=== PATIENT | male | born 1960 | race Caucasian/White ===

== ENCOUNTER 2021-08-04 20:39 | Inpatient (IN) ==
[2021-08-04] MEDS ORDERED: Magnesium Sulfate 2 gm BAG 2 GM/50 ML BAG ONE (20:52)
[2021-08-04] MEDS ORDERED: Naloxone 4 mg VIAL 0.4 MG/ML 10 ml VIAL (4 mg) ONE (20:56)
[2021-08-04] MEDS ORDERED: Magnesium Sulfate 2 gm BAG 2 GM/50 ML BAG IVPB ONE (20:59)
[2021-08-04] MEDS ORDERED: NS 0.9% 1000 ml BAG 1,000 ML IV ONE ×2 (21:00→21:45)
[2021-08-04] MEDS ORDERED: Naloxone 0.4 mg VIAL 0.4 mg/ml 1 ml VIAL IV PUSH ONE (21:15)
[2021-08-04 21:36] LABS: ABS Eosinophils 0.3 10^3/ul (0-0.6); ABS Lymphocytes 2.1 10^3/ul (1.0-4.8); ABS Monocytes 0.8 10^3/ul (0-0.8); ABS Neutrophils 4.5 10^3/ul (1.5-7.7); Eosinophil % 4.3 %; Hematocrit 43 % (42-52); Hemoglobin 14.7 g/dL (14.0-18.0); Lymphocyte % 27.5 %; Mean Corpuscular HGB Conc 34 g/dL (31-36); Mean Corpuscular Hemoglobin 31 pg (27-31); Mean Corpuscular Volume 89 fL (80-94); Nucleated Red Blood Cells % 0.1; Platelet Count 208 10^3/uL (150-450); Red Blood Count 4.83 10^6 /uL (4.18-5.48); Red Cell Distribution Width 14 % (10-15); White Blood Count 7.7 10^3/uL (3.5-10.8)
[2021-08-04 21:42] LABS: INR 1.03 (0.86-1.15)
[2021-08-04 21:54] LABS: High Sens Troponin Baseline 7 pg/mL (<20)
[2021-08-04 22:03] LABS: ALT 22 U/L (7-52); AST 21 U/L (13-39); Albumin/Globulin Ratio 1.7 (1-3); Alcohol, S < 13 mg/dL (<13); Alkaline Phosphatase 79 U/L (35-149); Anion Gap 8 mmol/L (2-11); Blood Urea Nitrogen 12 mg/dL (6-24); CO2 Carbon Dioxide 24 mmol/L (22-32); Calcium 9.2 mg/dL (8.6-10.3); Chloride 111 mmol/L (101-111); Globulin 2.3 g/dL (2-4); Glucose 102 mg/dL (70-100); Magnesium 2.6 mg/dL (1.9-2.7); Potassium 3.5 mmol/L (3.5-5.0); Sodium 143 mmol/L (135-145); Total Protein 6.3 g/dL (6.4-8.9); eGFR CKD-EPI 92.8 (>60)
[2021-08-04] MEDS: NS 0.9% 1000 ml BAG 1,000 ML IV ONE ×2 (22:24→22:26)
[2021-08-04 23:22] LABS: Urine Benzodiazepine Screen None Detected (None Detect); Urine Cannabinoids Screen None Detected (None Detect); Urine Opiates Screen Presumptive Positive (None Detect)
[2021-08-04 23:28] LABS: High Sensitivity Troponin 1 Hr 7 pg/mL (<20)
[2021-08-04] MEDS ORDERED: Iohexol 350 (CONTRAST) 500 ML MDV IV ONE (23:41)
[2021-08-05] MEDS ORDERED: Potassium Chlor 20 meq TAB.ER PO ONE (00:15)
[2021-08-05] MEDS ORDERED: Enoxaparin 40 MG/0.4 ML SYR SUBCUT SCH (01:00)
[2021-08-05 01:24] LABS: Phosphorus 2.5 mg/dL (2.5-5.0)
[2021-08-05 06:38] LABS: Blood Urea Nitrogen 9 mg/dL (6-24); CO2 Carbon Dioxide 25 mmol/L (22-32); Calcium 8.6 mg/dL (8.6-10.3); Glucose 100 mg/dL (70-100); Sodium 143 mmol/L (135-145); eGFR CKD-EPI 102.1 (>60)
[2021-08-05 06:55] LABS: Anion Gap 6 mmol/L (2-11); Chloride 112 mmol/L (101-111)
[2021-08-05] MEDS ORDERED: Aminophylline 25 MG/ML VIAL ONE (14:03)
[2021-08-05] MEDS ORDERED: Regadenoson 0.4 MG/5 ML SYRINGE ONE (14:03)
[2021-08-05] MEDS ORDERED: Lorazepam PYXIS KEY PRN (14:59)
[2021-08-05] MEDS ORDERED: LORazepam 2 mg VIAL 1 ml IV PUSH ONE (15:00)
[2021-08-05 17:07] VITALS: BP 132/86
[2021-08-08 01:16] LABS: Anaplasma phagocytophilum Negative (Negative); B. miyamotoi PCR, B Negative (Negative); Babesia divergens/MO-1 Negative (Negative); Babesia ducani Negative (Negative); Ehrlichia chaffeensis Negative (Negative); Ehrlichia ewingii/canis Negative (Negative); Ehrlichia muris eauclairensis Negative (Negative)
== END 2021-08-05 17:08 | disposition left against medical advice (07) | DRG 312 ==
LOC: ED 20:39 → EDHOLD 08-05 00:07 → ICU 08-05 00:40
PROVIDERS: ADMIT Internal Medicine; ATTEND Internal Medicine